=== PATIENT | male | born 1980 | race Caucasian/White ===

== ENCOUNTER 2019-04-14 13:49 | Outpatient (CLI) | payer BC, SELFPAY ==
--- NOTE | 2019-04-14 13:45 | DI.RAD_ITS ---
EXAM: XR PARANASAL SINUS INDICATION: Recurrent sinus congestion for 1 year, chronic rhinitis, J31.0. COMPARISON: No exams were available for comparison TECHNIQUE: 2D digital imaging was performed. FINDINGS: There is no evidence of fracture. The nasal septum is midline. There is increased opacity in the ri ght maxillary sinus. There is also some partial opacification of the left maxillary sinus. No bony erosions are seen. The mastoid air cells appear clear. No skull abnormality is seen. IMPRESSION: Bilateral maxillary sinus opacification, right greater than left.
== END 2019-04-14 14:09 ==
PROVIDERS: PCP Internal Medicine; Visit Provider Family Medicine
DX: J31.0 Chronic rhinitis (principal); J32.9 Chronic sinusitis, unspecified; R09.81 Nasal congestion
CPT/HCPCS: 70220

== ENCOUNTER 2019-05-19 08:40 | Outpatient (CLI) | payer BC, SELFPAY ==
[2019-05-22 13:01] LABS: Alternaria Tenuis IgE <0.35 kU/L; Aspergillus Fumigatus IgE <0.35 kU/L; Bermuda Grass IgE <0.35 kU/L; Cat Epithelium IgE <0.35 kU/L; Cladosporium IgE <0.35 kU/L; Cocklebur IgE <0.35 kU/L; Cockroach IgE <0.35 kU/L; D Farinae IgE <0.35 kU/L; D Pteronyssinus IgE <0.35 kU/L; Dog Dander IgE <0.35 kU/L; Eastern Sycamore IgE <0.35 kU/L; Elm IgE <0.35 kU/L; Epicoccum purpurascens IgE <0.35 kU/L; Giant Ragweed IgE <0.35 kU/L; Lamb's Quarter IgE <0.35 kU/L; Oak IgE <0.35 kU/L; Penicillium chrysogenum IgE <0.35 kU/L; Rough Pigweed IgE <0.35 kU/L; Short Ragweed IgE <0.35 kU/L; Silver Birch IgE <0.35 kU/L; Stemphyllium IgE <0.35 kU/L; Timothy Grass IgE <0.35 kU/L; Walnut Tree IgE <0.35 kU/L; Wormwood IgE <0.35 kU/L
[2019-05-22 14:56] LABS: Cottonwood IgE <0.35 kU/L; Red Sorrel IgE <0.35 kU/L
[2019-05-24 14:43] LABS: CLASS 0; Cedar Red IgE <0.10 kU/L (<0.35); Fusarium oxysporum/vasinfectum <0.35 kU/L (<0.35); Rhodotorula IgE <0.35 kU/L (<0.35)
== END 2019-05-19 09:00 ==
PROVIDERS: PCP Internal Medicine; Visit Provider Physician Assistant
DX: R09.81 Nasal congestion (principal); D72.1 Eosinophilia; J32.0 Chronic maxillary sinusitis; J33.9 Nasal polyp, unspecified
CPT/HCPCS: 36415; 86003

== ENCOUNTER 2019-08-03 00:45 | Outpatient (CLI) | payer OTHER, SELFPAY ==
--- NOTE | 2019-08-03 14:13 | DI.CT_ITS ---
EXAM: CT SINUS WO CLINICAL HISTORY: CHRONIC MAXILLARY SINUSITIS, J32.0, NASAL POLYPS, J33.9 TECHNIQUE: Noncontrast. Cell-A-Spottr[employer] protocol. COMPARISON: XR PARANASAL SINUS from 04/14/2019 FINDINGS: The right maxillary sinus is completely opacified. There is mild sinus expansion. The majority of t he ethmoid sinuses are also opacified. There is thinning of the ethmoid septa. The left maxillary s inus shows nearly complete opacification. The nasal cavity is also involved. There is partial opaci fication of the sphenoid sinuses. The frontal sinuses are completely opacified as well. No focal ma sses seen. The orbits and visualized portions of the brain are unremarkable. There is no skull frac ture. IMPRESSION: Severe sinonasal polyposis.
== END 2019-08-03 01:05 ==
PROVIDERS: PCP Internal Medicine; Visit Provider Otolaryngology
DX: J33.8 Other polyp of sinus (principal); J32.0 Chronic maxillary sinusitis
CPT/HCPCS: 70486

== ENCOUNTER 2020-11-13 03:18 | Outpatient (CLI) | payer OTHER, SELFPAY ==
[2020-11-13 08:09] LABS: Hemoglobin A1C 5.5 % (<5.7)
[2020-11-13 10:08] LABS: CREATININE 1.1 mg/dL (0.70-1.30); Calculated LDL 106 mg/dL (<100); Cholesterol 168 mg/dL (<200); HDL Cholesterol 31 mg/dL (40-60); Potassium 4.2 mmol/L (3.5-5.1); Triglyceride 159 mg/dL (<150)
== END 2020-11-13 03:19 | disposition home or self-care (01) ==
PROVIDERS: PCP Nurse Practitioner; Visit Provider Nurse Practitioner
DX: I10 Essential (primary) hypertension (principal); Z13.1 Encounter for screening for diabetes mellitus; Z13.6 Encounter for screening for cardiovascular disorders
CPT/HCPCS: 36415; 80061; 82565; 83036; 84132

== ENCOUNTER 2025-02-23 14:57 | Outpatient (CLI) | payer OTHER, SELFPAY ==
[2025-02-23 09:41] LABS: Hemoglobin A1C 5.5 % (<5.7)
[2025-02-23 09:46] LABS: ALT 45 U/L (16-63); AST 27 U/L (15-37); Albumin 3.9 g/dL (3.4-5.0); Alkaline Phosphatase 77 U/L (46-116); Anion Gap 7.1 mmol/L (3-11); BUN 11 mg/dL (7-18); Bilirubin, Total 0.6 mg/dL (0.2-1.0); CO2 30.9 mmol/L (21.0-32.0); Calcium 9.2 mg/dL (8.5-10.1); Calculated LDL 88 mg/dL (<100); Chloride 104 mmol/L (98-107); Cholesterol 167 mg/dL (<200); Estimated GFR 83.84 (mL/min/1.73m2); Glucose 117 mg/dL (74-106); HDL Cholesterol 33 mg/dL (>or=40); Potassium 3.8 mmol/L (3.5-5.1); Sodium 142 mmol/L (136-145); Total Protein 7.3 g/dL (6.4-8.2); Triglyceride 231 mg/dL (<150)
[2025-02-23 10:09] LABS: Uric Acid 8.1 mg/dL (3.5-7.2)
== END 2025-02-23 14:58 | disposition home or self-care (01) ==
LOC: LBO 14:58
PROVIDERS: PCP Nurse Practitioner Family; Visit Provider Nurse Practitioner Family
DX: Z00.00 Encounter for general adult medical examination without abnormal findings (principal); I10 Essential (primary) hypertension; M10.071 Idiopathic gout, right ankle and foot; J44.9 Chronic obstructive pulmonary disease, unspecified
CPT/HCPCS: 36415; 80053; 80061; 83036; 84550